=== PATIENT | female | born 1955 | race Caucasian/White ===

== ENCOUNTER → 2016-08-08 | Outpatient (CLI) | payer OTHER | LOC: BRMIMAGING 13:01 | PROVIDERS: ATTEND Obstetrics & Gynecology | DX: Z12.31 Encounter for screening mammogram for malignant neoplasm of breast (principal); Z13.820 Encounter for screening for osteoporosis; M85.80 Other specified disorders of bone density and structure, unspecified site; Z78.0 Asymptomatic menopausal state | CPT/HCPCS: G0202 ==

== ENCOUNTER → 2017-09-24 | Outpatient (CLI) | payer OTHER | LOC: CIMAGING 13:26 | PROVIDERS: ATTEND Obstetrics & Gynecology | DX: Z12.31 Encounter for screening mammogram for malignant neoplasm of breast (principal); R91.8 Other nonspecific abnormal finding of lung field | CPT/HCPCS: 71250-PO ==

== ENCOUNTER 2017-10-23 10:23 | Day surgery (SDC) | payer OTHER ==
[2017-10-23] MEDS ORDERED: fentaNYL 100 MCG/2 ML INJ IVP PRN (10:28)
[2017-10-23] MEDS ORDERED: MIDAZOLAM 2 MG/2 ML VIAL IVP PRN (10:28)
[2017-10-23] MEDS ORDERED: MEPERIDINE 25 MG/ML SYR IVP PRN (10:28)
[2017-10-23] MEDS ORDERED: NALOXONE HCL 0.4 MG/ML INJ IVP PRN (10:28)
[2017-10-23] MEDS ORDERED: PROTAMINE SULFATE 50 MG/5 ML VIAL IVP PRN (10:28)
[2017-10-23] MEDS ORDERED: FLUMAZENIL 0.5 MG/5 ML MDV IVP PRN (10:28)
[2017-10-23] MEDS ORDERED: NS 1,000 ML IV SCH (10:30)
[2017-10-23] MEDS ORDERED: NALOXONE HCL 0.4 MG/ML INJ ONE (10:39)
[2017-10-23] MEDS ORDERED: FLUMAZENIL 0.5 MG/5 ML MDV IVP ONE (10:39)
[2017-10-23] MEDS ORDERED: fentaNYL 100 MCG/2 ML INJ ONE (10:40)
[2017-10-23] MEDS ORDERED: MIDAZOLAM 2 MG/2 ML VIAL ONE (10:40)
[2017-10-23 11:25] LABS: INR 0.96 (0.83-1.16)
--- NOTE | 2017-10-23 12:48 | PDGENHP ---
History & Physical Chief Complaint: GROWING LESION LLL History of Present Illness: no history of CA. mild uptake of LLL nodule Pertinent Past, Social, Family History: c/s, partial hysterectomy, rhinoplasty, liposuction, wisdom teeth. Relevant Physical Exam: in no distress Cardiorespiratory Assessment: rrr, cta
--- NOTE | 2017-10-23 12:48 | PDPROPOC ---
Sedation Plan of Care Sedation Plan of Care: vital signs stable, mental status noted, patient educated of risks, benefits, alternatives, patient can tolerate sedation ASA Classification: ASA 2 Planned drugs: fentanyl, midazolam Mallampati Score: Class 2 Mallampati Reference Image: Patient passed 3-3-2 rule?: Yes
[2017-10-23] MEDS ORDERED: ONDANSETRON 4 MG/2 ML VIAL ONE (13:58)
[2017-10-23] MEDS ORDERED: ONDANSETRON 4 MG/2 ML VIAL IVP ONE (14:00)
[2017-10-23] MEDS ORDERED: ONDANSETRON 4 MG/2 ML VIAL IVP PRN (14:26)
--- NOTE | 2017-10-23 14:26 | PDRADPN ---
Radiology Procedure Note Date of Procedure: 10/23/17 Radiologist: Raegan Nelson Anesthesia: IV Sedation Pre-op Diagnosis: LLL MASS Post-op Diagnosis: SAME Indication: GROWING MASS Procedure: CT GUIDED LLL BIOPSY Finding(s): ADEQUATE SAMPLE. Inf/Abcess present in the surg proc area at time of surgery?: No Complications: SMALL PTX
[2017-10-23 17:37] VITALS: BP 120/69
== END 2017-10-23 17:38 | disposition home or self-care (01) ==
LOC: FIMAGING 10:23
PROVIDERS: ATTEND Radiology Diagnostic Radiology
DX: R91.1 Solitary pulmonary nodule (principal); M54.6 Pain in thoracic spine; M21.759 Unequal limb length (acquired), unspecified femur; F32.9 Major depressive disorder, single episode, unspecified; M85.80 Other specified disorders of bone density and structure, unspecified site; Z80.7 Family history of other malignant neoplasms of lymphoid, hematopoietic and related tissues; Z80.42 Family history of malignant neoplasm of prostate
CPT/HCPCS: J2250; J2310; J2405; J3010

== ENCOUNTER → 2017-10-28 | Outpatient (CLI) | payer OTHER | LOC: FIMAGING 16:01 | PROVIDERS: ATTEND Radiology Diagnostic Radiology | DX: J93.9 Pneumothorax, unspecified (principal); J90 Pleural effusion, not elsewhere classified ==

== ENCOUNTER → 2017-10-30 | Outpatient (CLI) | payer OTHER | LOC: FIMAGING 11:50 | PROVIDERS: ATTEND Radiology Diagnostic Radiology | DX: J93.9 Pneumothorax, unspecified (principal) ==

== ENCOUNTER → 2017-11-01 | Outpatient (CLI) | payer OTHER | LOC: FIMAGING 10:11 | PROVIDERS: ATTEND Radiology Diagnostic Radiology | DX: J93.9 Pneumothorax, unspecified (principal); J90 Pleural effusion, not elsewhere classified ==

== ENCOUNTER → 2018-05-17 | Outpatient (CLI) | payer OTHER | LOC: FIMAGING 14:24 | PROVIDERS: ATTEND Physical Medicine & Rehabilitation | DX: M54.6 Pain in thoracic spine (principal); Z09 Encounter for follow-up examination after completed treatment for conditions other than malignant neoplasm ==

== ENCOUNTER → 2018-05-21 | Outpatient (CLI) | payer OTHER | LOC: FIMAGING 15:20 | PROVIDERS: ATTEND Internal Medicine Critical Care Medicine | DX: R91.1 Solitary pulmonary nodule (principal) ==